=== PATIENT | male | born 1955 | race Caucasian/White ===

== ENCOUNTER → 2024-06-07 11:45 | Outpatient (CLI) | payer OTHER, SELFPAY ==
[2024-06-13 03:12] LABS: Aspergillus fumigatus IgE <0.10 kU/L (Class 0)
[2024-06-14 01:11] LABS: Immunoglobulin E 139 IU/mL (6-495)
== END ==
PROVIDERS: PCP Registered Nurse; Referring Provider Internal Medicine; Visit Provider Internal Medicine
DX: J47.9 Bronchiectasis, uncomplicated (principal)
CPT/HCPCS: 36415; 82785; 86003; 99215

== ENCOUNTER → 2024-09-13 14:42 | Outpatient (CLI) | payer OTHER, SELFPAY ==
[2024-09-15 08:12] LABS: Alpha 1 Anti Trypsin 161 mg/dL (101-187); IGA 254 mg/dL (61-437); IGG 1125 mg/dL (603-1613); IGM 86 mg/dL (20-172)
[2024-09-16 12:40] LABS: CCP Antibodies IgG/IgA 4 units (0-19)
[2024-09-18 14:11] LABS: ANA Screen, IFA Negative (.)
[2024-10-09 09:06] LABS: CF Result NEGATIVE
== END ==
PROVIDERS: PCP Family Medicine; Referring Provider Internal Medicine; Visit Provider Internal Medicine
DX: J47.9 Bronchiectasis, uncomplicated (principal)
CPT/HCPCS: 36415; 81223; 82103; 82784; 86038; 86200; 99215